=== PATIENT | female | born 1960 | race Caucasian/White ===

== ENCOUNTER → 2016-06-15 | Outpatient (CLI) | payer BC ==
[~2016-06-15] MED LIST: FLUO20CA35 PO; LOVA40TA3 PO; MELO7.5T5 PO; METO25TA56 PO
--- NOTE | 2016-06-16 05:58 | PAP/PSG TECHNICIAN REPORT ---
[facility] Care Worker Polysomnogram Report Study name: None Report date: 06/16/2016 Study date: 06/15/2016 Referring Physician: DR. SWAIN Name: TAVO ABARCA Interpreting Physician: Rafat Swain M.D. Date of : 1960 Group Care Worker: CRISTIN Jones. Sex: Female Age: 56 StudyType: PSG PAP Weight: 173 lbs Height: 56 years, Height 5' 5" Neck Circum:15inches BMI: 28.79 Medications: Atorvastatin 40mg, Fluoxetine 40mg, Losartan 50mg, Omeprazole 40mg, Ventolin HFA Patient History Study started on room air with 4cwp CPAP in room #6. 56 yr old female here tonight for a new titration study. She had a diagnostic psg done here on 04/11/16 that had an AHI of 11.5. Her ESS=12/24. Neck circ=15inches. Parameters Monitored NPSG: E1-M2, E2-M1, Fp1-M2, Fp2-M1, F3-M2, F4-M2, F4-M1, C3-M2, C4-M2, C4-M1, O1-M2, O2-M2, O2-M1, T3-M2, T4-M1, P3-M2, P4-M1, CHIN1, CHIN2, HR, EKG, Legs, PFLOW, SNOR, FLOW, CFLOW, Tidal Volume, THOR, ABDO, SpO2, PLTH, CPRESS, ETCO2 Wave, ETCO2, pH Sleep Architecture Sleep Stages Time at Lights Off 9:00:56 PM STAGES Time (min.) TST (%) Time at Lights On 5:32:56 AM Wake 90.0 -- Total Recording Time (TRT) 513.50 min. N1 37.5 9 Total Sleep Period (TSP) 486.5 min. N2 192.5 46 Total Sleep Time (TST) 422.0min. N3 76.0 18 Awake Time 91.5 min. REM 116.0 27 Wake after Sleep Onset 66.5 min. Sleep Efficiency (SE) 82 % Sleep Onset Latency (BILLY) 23.5 min. Number of Stage 1 Shifts None Awakenings 17 Stage Changes 107 Number of REM periods 5 REM 116.0 27 REM Latency 177.5 min. NREM 306.0 73 Body Position Analysis Supine Right Left Side Prone Vertical Total Sleep Time (min.) 288.2 74.8 98.2 172.97 0.0 0.0 Total Sleep Time (%) 59% 18% 23% 41 0% N/A% Total Sleep Time REM (min.) 91.5 0.0 24.5 None 0.0 0.0 Total Sleep Time NREM (min.) 157.5 74.8 73.7 None 0.0 0.0 Intermittent Wake (min.) 39.2 8.6 42.2 None 0.0 0.0 Total Sleep Period (%) 58% None None None None None Arousals Myoclonus (PLM) * Events Count Index Events Count Index Spontaneous 44 6 Events Awake (PLMW) 84 56.0 Respiratory 8 1.1 Events Asleep w/ Arousal (PLMA) 16 2.3 PLM 15 2 Events Asleep w/o Arousal (PLMS) 65 9.2 Snoring 5 1 Total Asleep 81 11.5 Total 72 10 Total 165 19 Respiratory Analysis * CA OA MA CH H RERA Total Count 0 1 0 0 14 0 15 Index 0.0 0.1 0.0 0 2.0 0 2.1 Mean Duration 0.0 12.2 0.0 0.00 29.7 0.0 28.5 Longest Duration 0.0 12.2 0.0 0.00 0.0 0.0 45.4 Respiratory Event Summary Total Supine ~Supine Right Left Prone REM NREM Apneas Count 1 1 0 0 0 N/A 1 0 Index 0.1 0 0 0.0 0.0 N/A 1 0 Hypopneas (4% Desat) Count 14 11 3 2 1 N/A 2 12 Index 2.0 2.7 1 1.6 0.6 N/A 1.0 2.4 Apneas & All Hypopneas Count 15 12 3 2 1 N/A 3 12 Index 2.1 3 1 2 1 N/A 1.6 2.4 Respiratory Events (Steward/Stewardess Bath+All Hyp+RERA) Count 15 12 3 2 1 N/A 3 12 Index 2.1 3 1 1.6 0.6 N/A 1.6 2.4 Respiratory Related Arousal Count 8 12 2 1 1 N/A 0 8 Index 1.1 1 1 1 1 N/A 0 2 Snoring Analysis Supine Right Left Prone REM NREM Total Snore duration 3.9 min Snores count 121 20 6 N/A 34 113 147 Snore mean duration 1.6 Sec Snores index 29 16 4 N/A 17.6 22.2 20.9 TST with snoring (%) 0.9% Desaturation Event Summary: Minimum %SpO2 Event Count Mean/Min/Max Duration(sec.) Desaturation Index % Time In Bed > 90 21 31.0 / 14.5 / 55.3 3.0 81.3 86 - 90 4 26.1 / 19.3 / 33.5 2.5 18.7 81 - 85 0 N/A 0.0 0.0 76 - 80 0 N/A 0.0 0.0 71 - 75 0 N/A 0.0 0.0 66 - 70 0 N/A 0.0 0.0 61 - 65 0 N/A 0.0 0.0 56 - 60 0 N/A 0.0 0.0 51 - 55 0 N/A 0.0 0.0 < 50 0 N/A 0.0 0.0 Total REM NREM Awake <50% 0.0 min. 0.0 min. 0.0 min. 0.0 min. 51 - 60% 0.0 min. 0.0 min. 0.0 min. 0.0 min. 61 - 70% 0.0 min. 0.0 min. 0.0 min. 0.0 min. 71 - 80% 0.0 min. 0.0 min. 0.0 min. 0.0 min. 81 - 90% 95.6 min. 51.7 min. 41.4 min. 2.5 min. 91 - 100% 414.1 min. 64.4 min. 263.0 min. 86.8 min. Average 92 91 92 93 Minimum SpO2 85 85 87 89 Desaturation Event Index 2.6 1.0 3.7 0.7 # Desat. Events below 89% 7 1 6 N/A Time(%) with Saturation below 89% 0.6 0.3 0.2 0.0 Time(min.) with Saturation below 89% 2.8 1.6 1.2 0.0 Time (mins) REM (mins) NREM (mins) % of TST SpO2 Below 90% 21 2 N19 5.2 SpO2 Below 88% 4 0 0 0 Heart Rate Analysis Min (bpm) Max (bpm) Average (bpm) Awake 50 127 54 NREM 48 64 53 REM 51 63 56 Overall 48 64 54 Supplemental O2 Values Minimum O2 level: None Value Start Time End Time Group Care Worker Comments Mrs. Abarca slept in the right, left and supine positions. No cardiac arrhythmia noted. PLM's noted. No bruxism noted. CPAP was initiated at +4 CMH2O and up-titrated to an optimal level of +7 CMH2O, which nearly eliminated all respiratory events and snoring. A small Mirage FX nasal mask by [employer] was used during titration. She did not use the restroom during the night. She stated that she slept well. The final report will be interpreted and signed by a sleep physician. The completed physician report will then be placed in the patient medical record. Therapy Event: Therapy (cm H20) 4 5 6 7 Total Time at Pressure (min.) 230.6 92.4 48.6 140.3 TST at Pressure (min.) 198.6 54.4 38.1 130.8 # Periods 1 1 1 1 Sleep Onset (min.) 23.5 0.0 0.0 0.0 REM Onset (min.) 201.0 0.0 N/A 92.8 Sleep Efficiency % 86 58 78 93 Wakefulness (%) 13.9 41.1 21.6 6.8 Wakefulness (min.) 32.0 38.0 10.5 9.5 NREM 1 (%) 5.6 8.2 18.8 5.6 NREM 1 (min.) 13.0 7.5 9.1 7.8 NREM 2 (%) 45.7 2.7 50.4 42.8 NREM 2 (min.) 105.5 2.5 24.5 60.0 NREM 3 (%) 22.3 0.0 9.3 14.3 NREM 3 (min.) 51.5 0.0 4.5 20.0 REM (%) 12.4 48.0 0.0 30.6 REM (min.) 28.6 44.4 0.0 43.0 # Arousals 27 8 19 18 Arousal Index 8.2 8.8 29.9 8.3 # Snore 117 3 15 12 Snore Index 35.3 3.3 23.6 5.5 AHI 0.0 4.4 11.0 1.8 AHI Supine 0.0 4.9 19.2 2.0 AHI Non-Supine 0.0 0.0 5.3 1.4 NREM AHI 0.0 17.9 11.0 1.4 REM AHI 0.0 1.4 N/A 2.8 RDI 0.0 4.4 11.0 1.8 # Obstructive 0 0 0 1 # Central Ap 0 0 0 0 # Mixed 0 0 0 0 # Hypopneas 0 4 7 3 RERAS 0 0 0 0 Total Respiratory Events 0 4 7 4 Time Below SpO2 89.00% (min.) 0.0 0.3 0.8 1.7 Mean NREM SpO2 (%) 92 92 92 91 Mean REM SpO2 (%) 91 90 N/A 90 Mean Sleep SpO2 (%) 92 91 92 91 Min NREM SpO2 (%) 90 89 87 87 Min REM SpO2 (%) 89 88 N/A 85 Position Supine (min.) 95.7 48.9 15.6 88.8 Position Non-supine (min.) 102.9 5.5 22.5 42.0 LM Index Sleep 6.6 13.2 29.9 12.8 LM Index NREM 7.1 71.8 29.9 15.0 LM Index REM 4.2 0.0 N/A 8.4 Mean Heart Rate (bpm) 53 55 54 54 Min Heart Rate (bpm) 48 51 51 48
--- NOTE | 2016-06-19 22:52 | POLYSOMNOGRAPH REPORT ---
CLINICAL DATA: A 56-year-old female with BMI of 28.[address] Sunday Koch, Maria M Duval and myself for CPAP titration study. She had a sleep study on 04/11/2016 which showed mild sleep apnea with an AHI of 11.5 with nocturnal hypoxemia. SLEEP ARCHITECTURE: Total sleep period was 486.5 minutes. Total sleep time was 422 minutes divided between 306 minutes of non-REM sleep and 116 minutes of REM sleep. Sleep onset latency was 22.5 minutes. REM latency was 177.5 minutes. Sleep efficiency was 82%. Wake after sleep onset was 66.5 minutes. Sleep consisted of stage N1 9%, N2 46%, N3 18%, and REM 27%. AROUSAL DATA: Seventy two arousals were recorded for an index of 10 per hour. PLM DATA: Eighty one limb movements during sleep were noted for an index of 11.5 per hour with arousal index of 2.3 per hour. RESPIRATORY DATA: The AHI was 2.1. There was 1 obstructive apneic episode, 12.2 seconds in duration. There were 14 hypopneic episodes. The mean duration of hypopnea was 29.7 seconds. OXIMETRY DATA: Transient nocturnal hypoxemia was seen. Oxygen nan was 85% during REM. The mean saturation was 92%. Time below 88% was 4 minutes. EKG: Heart rates ranged from 48-64 beats per minute. No arrhythmias were noted. ROOMING HOUSE INSPECTOR'S COMMENTS AND TREATMENT SUMMARY: The patient slept in the right, left, and supine position. A small Mirage FX nasal mask by [employer] was used. The patient was titrated up to her final pressure setting of 7 cm of water CPAP. At a final pressure setting, she slept for 130.8 minutes with an AHI of 1.8. IMPRESSION: Mild obstructive sleep apnea/hypopnea corrected with CPAP 7 cm water pressure, small Mirage FX nasal mask by [employer]. RECOMMENDATIONS: The patient should be started on the above noted treatment regimen and seen back in followup within 90 days to document efficacy and compliance. [facility]
== END | disposition home or self-care (01) ==
LOC: C.NEUR 20:00
PROVIDERS: ATTEND Internal Medicine Pulmonary Disease
DX: G47.33 Obstructive sleep apnea (adult) (pediatric) (principal)

== ENCOUNTER → 2016-06-30 | Outpatient (CLI) | payer BC ==
[~2016-06-30] VITALS: Ht 165.1 cm; Wt 80.1 kg
[2016-06-30 15:51] VITALS: BP 144/84; PULSE 68; Ht 165.1 cm; Wt 80.1 kg
== END | disposition home or self-care (01) ==
LOC: C.NEUR 13:55
PROVIDERS: ATTEND Internal Medicine Pulmonary Disease
DX: G47.33 Obstructive sleep apnea (adult) (pediatric) (principal)

== ENCOUNTER → 2016-06-30 | Outpatient (CLI) | payer BC ==
[2016-06-30 13:41] LABS: BLOOD UREA NITROGEN 15 mg/dl (7-18); BUN/CREATININE RATIO 21.1 (10-20); CALCIUM 9.1 mg/dl (8.5-10.1); CARBON DIOXIDE 27 mmol/L (21-32); CHLORIDE 106 mmol/L (98-107); CREATININE 0.73 mg/dl (0.60-1.20); GLUCOSE 110 mg/dl (70-99); POTASSIUM 4.7 mmol/L (3.5-5.1); SODIUM 142 mmol/L (136-145)
== END | disposition home or self-care (01) ==
LOC: C.LABMFLN 08:22
PROVIDERS: ATTEND Family Medicine
DX: I10 Essential (primary) hypertension (principal)